=== PATIENT | male | born 1980 | race Caucasian/White ===

== ENCOUNTER 2018-05-15 20:01 | Emergency (ER) | payer BC ==
[2018-05-15 20:12] VITALS: BP 89/56
--- NOTE | 2018-05-15 20:39 | EDPHY ---
H & P Smoking Status: Current some day smoker Time Seen by Provider: 05/15/18 20:23 HPI/ROS: HPI Right wrist laceration. 37-year-old male by private vehicle with girlfriend. This patient is right- hand dominant. He was using a chop saw. He had just cut a piece avoid. The saw blade was slowing down when he pulled the piece of wood off of the soft platform and caught the ulnar aspect of his distal forearm on the saw blade sustaining a laceration to this area. He denies any loss of sensation or weakness distally. Denies pulsatile bleeding. No expanding hematoma. No other complaint. He reports he had a tetanus shot about 10 years ago. ROS: Constitutional: No fever, no chills. No weakness. Musculoskeletal: As above. Skin: As above. Neurological: No focal weakness or altered sensation. Past medical history: Ankylosing spondylitis Social history: Nonsmoker. No alcohol. Here with his girlfriend. Physical Exam: General Appearance: Alert, no distress. This patient is responding to questions appropriately and in full sentences. This patient appears well- hydrated and well-nourished. Eyes: Pupils equal and round no pallor or injection. No lid edema, erythema or injection. Right upper extremity exam: Significant for a full-thickness laceration measuring approximately 3.5 cm distal ulnar forearm just proximal to the ulnar styloid. No pulsatile bleeding. No expanding hematoma. Extensor function is intact in all digits. Wrist extension is fully intact against resistance, wrist ulnar deviation is fully intact against resistance. Right hand is neurovascularly intact. Neurological: Motor sensory function is grossly intact. Cranial nerves are normal. Gait is normal. Skin: Warm and dry, no rashes. As above. Extremities are symmetrical. All joints range without pain or impingement. Psychiatric: No agitation. No depression. Database: EKG: Imaging: Procedures: Please see ED laceration repair note by physician administrative library assistant Akash Christensen. Emergency department course: After suture repair is noted above, wound care was discussed with the patient. Follow-up and return to emergency department precautions reviewed. All of his questions were answered. He was discharged from the emergency department in good condition with his girlfriend who is driving. Differential Diagnosis: The differential diagnosis on this patient includes but is not limited to right wrist laceration. Tendon laceration, retained foreign body, significant neurovascular injury unlikely. This represents a partial list of diagnoses considered. These considerations are based on history, physical exam, past history, reassessment and diagnostic testing. (Yuri Mcginnis) Constitutional: Initial Vital Signs Temperature (C) 97.3 F 05/15/18 20:07 Heart Rate 55 L 05/15/18 20:07 Respiratory Rate 18 05/15/18 20:07 Blood Pressure 89/56 L 05/15/18 20:07 O2 Sat (%) 97 05/15/18 20:07 O2 Delivery Mode Room Air Allergies/Adverse Reactions: No Known Allergies Allergy (Unverified 05/15/18 20:06) Home Medications: Medication Instructions Recorded Humira 05/15/18 Lisinopril 05/15/18 Omeprazole 05/15/18 Paroxicam 05/15/18 Medical Decision Making Procedures: My involvement the care this patient is solely for procedure. Please see the note of the attending physician for all other aspects of care. PROCEDURE: Laceration repair Consent: Verbal Location: Dorsum of right wrist near the ulnar styloid Length of repair: 3.5 cm Complexity: Complex Layer involvement: Single Anesthesia: Local. 1% lidocaine with epinephrine, 5 mL Irrigation: Extensive Debridement: None Procedure description: Following good anesthesia, the wound was copiously irrigated. Wound bed was explored with a sterile glove, and there is no foreign body noted. No injury to the extensor apparatus or deep tissue structures. Wound borders were approximated well with good hemostasis. Tolerated well without complication. Suture/Staple material: 4-0 Prolene, 5 simple interrupted sutures Wound care: Routine as discussed Suture/Staple removal: 7-10 Days (Akash Christensen) - Data Points Medications Given: Discontinued Medications Diphtheria/Tetanus/Acell Pertussis (Boostrix) 0.5 ml IM .ONCE ONE Stop: 05/15/18 20:52 Last Admin: 05/15/18 20:55 Dose: 0.5 ml Departure - Departure Disposition: Home, Routine, Self-Care Clinical Impression: Laceration of right wrist Condition: Good Instructions: Care For Your Stitches (DC), Laceration (ED) Additional Instructions: Read and follow provided instructions. Sutures are to be removed in 10-12 days. Follow-up with your primary care physician in 2-3 days for re-evaluation and wound check. Ibuprofen dosin mg every 6 hours with meals for the next 3 days only. Take only as needed for pain. Return to the emergency department for worsening pain, bleeding, redness or swelling around the wound edges, drainage of pus, loss of sensation or weakness in your fingers or hand or other serious concerns. Referrals: Richard Phoenix MD [Primary Care Provider] - As per Instructions
[2018-05-15] MEDS ORDERED: TDAP ADULT 0.5 ML INJ (BOOSTRIX) IM ONE (20:51)
== END 2018-05-15 21:59 | disposition home or self-care (01) ==
PROC: 0HQDXZZ Repair Right Lower Arm Skin, External Approach (ICD-10-PCS; principal; 2018-05-15)
DX: S61.511A Laceration without foreign body of right wrist, initial encounter (principal); F17.200 Nicotine dependence, unspecified, uncomplicated; Z23 Encounter for immunization; W31.2XXA Contact with powered woodworking and forming machines, initial encounter; Y92.9 Unspecified place or not applicable; Y93.9 Activity, unspecified; Y99.9 Unspecified external cause status